=== PATIENT | male | born 1985 | race Two or more races ===

== ENCOUNTER 2017-11-29 21:01 | Emergency (ER) | payer MEDICAID ==
[~2017-11-29] VITALS: Ht 162.6 cm; Wt 99.8 kg
[2017-11-29] MEDS: Albuterol/Ipratropium 3ml neb HHN SCH ×3 (21:20→21:46)
--- NOTE | 2017-11-29 21:24 | Emergency Room Report ---
History of Present Illness General Chief Complaint: Asthma Source: Patient Present Illness HPI 32-year-old male with a history of asthma presents with shortness of breath and wheezing since yesterday, he attributes it to exposure to his mother's pets He denies recent steroid use, recent hospitalization Denies intubation ever in the past, denies fevers, denies chest pain, hemoptysis or sputum production, does report a dry cough cough Reports he ran out of his inhaler yesterday Allergies: Coded Allergies: No Known Allergies (Unverified , 11/29/17) Patient History Past Medical History: see triage record Reviewed Nursing Documentation: PMH: Agreed; PSxH: Agreed Nursing Documentation-PMH Past Medical History: No History, Except For Hx Asthma: Yes Review of Systems All Other Systems: negative except mentioned in HPI Physical Exam Vital Signs Date Time Temp Pulse Resp B/P (MAP) Pulse Ox O2 Delivery O2 Flow Rate FiO2 11/29/17 21:07 98.1 116 16 160/90 94 Room Air 98.1 Sp02 EP Interpretation: normal - O2 sat slightly low General Appearance: no apparent distress, alert, non-toxic Head: normocephalic Eyes: bilateral eye normal inspection, bilateral eye PERRL, bilateral eye EOMI ENT: normal ENT inspection, hearing grossly normal, normal pharynx, no angioedema, normal voice, moist mucus membranes Neck: normal inspection, full range of motion, supple, supple/symm/no masses Respiratory: chest non-tender, no rhonchi, wheezing, expiration, inspiration, chest symmetrical, palpation of chest normal Cardiovascular #1: normal peripheral pulses, regular rate, rhythm Cardiovascular #2: 2+ radial (R), 2+ radial (L) Gastrointestinal: normal inspection, non tender, soft, no mass, no guarding, no rebound Rectal: deferred Genitourinary: normal inspection, no CVA tenderness Musculoskeletal: back normal, gait/station normal, normal range of motion, non- tender, no calf tenderness Neurologic: alert, responsive, shellfish sorter III-XII nml as tested, motor strength/tone normal, sensory intact, speech normal Psychiatric: judgement/insight normal, mood/affect normal, no suicidal/ homicidal ideation, anxious Skin: normal color, no rash, warm/dry, normal turgor Lymphatic: no adenopathy Medical Decision Making Medical: Asthma Reaction to Intervention: Improved Diagnostic Impression: Primary Impression: Asthma ER Course Patient with asthma attack, obvious inspiratory and expiratory wheezing, but patient able to speak in full sentences, did not suspect pneumonia Patient given 3 nebulizer treatments as well as by mouth prednisone Will be discharged with a 5 day burst course of prednisone as well as an albuterol inhaler prescription with one refill and recommendations to return if sugars of breath increases and to try to obtain outpatient follow-up with primary care doctor Reevaluation Time: 22:11 Last Vital Signs Date Time Temp Pulse Resp B/P (MAP) Pulse Ox O2 Delivery O2 Flow Rate FiO2 11/29/17 21:09 116 16 Room Air 11/29/17 21:07 98.1 160/90 94 98.1 Status: improved Disposition: HOME, SELF-CARE Condition: Stable Scripts Prednisone* (PREDNISONE*) 20 Mg Tablet 60 MG ORAL DAILY, #5 TAB Prov: BJ CORNEJO M.D 11/29/17 Albuterol Sulfate* (ALBUTEROL SULFATE MDI*) 8.5 Gm Hfa.aer.ad 2 PUFF INH Q4H PRN for cough/wheezing, #1 EA 0 Refills Prov: BJ CORNEJO M.D 11/29/17 BJ CORNEJO M.D Nov 29, 2017 21:24
[2017-11-29] MEDS ORDERED: ALBUTEROL SULF8.5 GM INH (21:26)
[2017-11-29] MEDS ORDERED: PREDNISONE20 MG ORAL (21:26)
[2017-11-29 22:15] VITALS: BP 160/90
[2017-11-29 22:19] VITALS: BP 160/90
== END 2017-11-29 22:20 | disposition home or self-care (01) ==
LOC: EMR 21:23
DX: J45.909 Unspecified asthma, uncomplicated (principal)
CPT/HCPCS: 94640; 94664; 99284; J7512; J7620

== ENCOUNTER 2018-02-24 18:40 | Emergency (ER) | payer SELFPAY ==
[~2018-02-24] VITALS: Ht 175.3 cm; Wt 99.8 kg
[~2018-02-24 18:40] MED LIST: ALBUTEROL SULF8.5 GM INH; PREDNISONE20 MG ORAL
[2018-02-24] MEDS ORDERED: Albuterol/Ipratropium 3ml neb ONE (18:48)
[2018-02-24 18:50] VITALS: BP 131/80
[2018-02-24] MEDS ORDERED: Albuterol/Ipratropium 3ml neb HHN ONE (19:00)
[2018-02-24] MEDS ORDERED: ALBUTEROL SULF8.5 GM INH (19:26)
[2018-02-24] MEDS ORDERED: PREDNISONE20 MG ORAL (19:26)
[2018-02-24 19:38] VITALS: BP 128/78
[2018-02-24 19:42] VITALS: BP 128/78
--- NOTE | 2018-02-24 22:03 | Emergency Room Report ---
History of Present Illness General Chief Complaint: Dyspnea/Respdistress Source: Patient Present Illness HPI Patient is a 32-year-old male presented after increased difficulty breathing.The patient reports having had a prior history of asthma. He denies any fever. He had nonproductive cough. Patient had onset of symptoms approximately he had similar symptoms in the past. Allergies: Coded Allergies: No Known Allergies (Unverified , 11/29/17) Patient History Past Medical History: see triage record Reviewed Nursing Documentation: PMH: Agreed; PSxH: Agreed Nursing Documentation-PMH Hx Asthma: Yes Review of Systems All Other Systems: negative except mentioned in HPI Physical Exam Vital Signs Date Time Temp Pulse Resp B/P (MAP) Pulse Ox O2 Delivery O2 Flow Rate FiO2 02/24/18 18:42 98.0 110 27 100 Non-Rebreather 15.0 98.1 02/24/18 18:50 131/80 02/24/18 19:12 21 General Appearance: well appearing, no apparent distress, alert, GCS 15 Head: normocephalic, atraumatic ENT: hearing grossly normal, normal voice Neck: full range of motion, supple Respiratory: no respiratory distress, speaking full sentences, wheezing Cardiovascular #1: normal inspection, normal peripheral pulses, regular rate, rhythm, no edema Gastrointestinal: normal inspection Musculoskeletal: normal inspection, gait/station normal, no calf tenderness Neurologic: normal inspection, alert, oriented x3, normal gait Psychiatric: mood/affect normal Skin: no rash Medical Decision Making Diagnostic Impression: Primary Impression: Asthma attack ER Course The patient presented for cough and difficulty breathing. Difficult differential diagnosis included bronchitis, pneumonia, asthma, foreign body, pertussis among others. The patient was given breathing treatments with with improvement in respiratory status. ppatient was given albuterol treatment. A repeat exam showed diminished wheezing. Patient was advised followup with primary care physician for reevaluation one to 2 days. Patient was to return for increased productive cough, hemoptysis, increased difficulty breathing or other concerns. The patient is given prescription for albuterol as well as steroids Last Vital Signs Date Time Temp Pulse Resp B/P (MAP) Pulse Ox O2 Delivery O2 Flow Rate FiO2 02/24/18 19:42 98.0 78 18 128/78 100 Room Air 15.0 21 98.1 105 Status: improved Disposition: HOME, SELF-CARE Condition: Stable Scripts Prednisone* (PREDNISONE*) 20 Mg Tablet 40 MG ORAL DAILY, #10 TAB Prov: Parker Parker MD 02/24/18 Albuterol Sulfate* (ALBUTEROL SULFATE MDI*) 8.5 Gm Hfa.aer.ad 2 PUFF INH Q4H PRN for cough/wheezing, #1 EA 0 Refills Prov: Parker Parker MD 02/24/18 Referrals: NOT CHOSEN [facility]/MD,REFERRING (PCP) Patient Instructions: Asthma, Adult Parker Parker MD Feb 24, 2018 22:03
== END 2018-02-24 19:48 | disposition home or self-care (01) ==
LOC: EMR 18:55
DX: J45.909 Unspecified asthma, uncomplicated (principal)
CPT/HCPCS: 94640; 94664; 99284; J7512; J7620